=== PATIENT | male | born 1995 | race Hispanic/Latino ===

== ENCOUNTER 2025-01-27 16:23 | Emergency (ER) | payer SELFPAY ==
[~2025-01-27] VITALS: Ht 170.2 cm; Wt 154.2 kg
[2025-01-27 17:04] LABS: IMMATURE GRANULOCYTE ABSOLUTE 0.04 K/uL (0-1); NUCLEATED RED BLOOD CELLS 0.0 % (0.0-0.19); PLATELET COUNT (AUTO) 316 K/uL (130-400); RED BLOOD CELL COUNT(AUTO) 5.07 MIL/uL (4.50-6.20); RED CELL DISTRIBUTION WIDTH 14.6 % (11.0-15.5); WHITE BLOOD COUNT (AUTO) 12.7 K/uL (4.8-10.8)
[2025-01-27 17:15] LABS: CREATININE 0.8 mg/dL (0.5-1.3); GLOMERULAR FILTR. RATE CALC 124.0 mL/min (>90); GLUCOSE,RANDOM 113.0 mg/dL (70-105); SODIUM SERUM 133.0 mmol/L (136-145); UREA NITROGEN, BLOOD 10.0 mg/dL (7-18)
--- NOTE | 2025-01-27 17:35 | HMCIMG ---
EXAM: CT Head Without IV contrast. CLINICAL HISTORY: Complicated right otitis externa/right sided facial swelling TECHNIQUE: Axial computed tomography images of the head/brain without intravenous contrast. COMPARISON: None provided. FINDINGS: BRAIN: No evidence of acute hemorrhage. No mass lesion. No CT evidence for acute territorial infarct. No midline shift or extra-axial collections. VENTRICLES: No hydrocephalus. ORBITS: The orbits are unremarkable. SINUSES AND MASTOIDS: The paranasal sinuses r cells are clear. Some fluid right mastoid air cells. Soft tissue prominence external auditory canal BONES: No fracture. SOFT TISSUES: Unremarkable. IMPRESSION: No acute intracranial abnormality. Fluid in the right mastoid air cells. Soft tissue prominence and external moderate canal. CT temporal bones suggested /[place]
[2025-01-27 19:09] VITALS: TEMP 99.2
--- NOTE | 2025-01-27 19:43 | HMCIMG ---
EXAM: CT Sinuses Without IV contrast. CLINICAL HISTORY: r/o mastoiditis TECHNIQUE: Computed tomography images of the maxillofacial sinuses without intravenous contrast. Sagittal and coronal reformatted images were generated. CONTRAST: None. COMPARISON: None provided. FINDINGS: PARANASAL SINUSES: The sinuses are well aerated, normally developed. Minimal mucosal thickening in the right maxillary sinus. The osteomeatial units are unremarkable. ORBITS: The orbits are normal. NASAL CAVITY/SEPTUM: The nasal airways are patent. No nasal polyps or masses. Tereza bullosa on the right side. Mild deviated nasal septum to the left with a small bony spur Fluid density in the right mastoid air cells extending into middle ear. BONES: No acute osseous abnormality. SOFT TISSUES: Foci of air within the right parotid gland and parotid duct. The right parotid gland is asymmetrically enlarged with mild associated fat stranding reflecting parotitis. IMPRESSION: Right otomastoiditis. Right parotitis. Minimal mucosal thickening in the right maxillary sinus. Tereza bullosa on the right side. Mild deviated nasal septum to the left with a small bony spur. /[place]
--- NOTE | 2025-01-27 21:05 | ERN ---
General Chief Complaint: Earache Stated Complaint: RT EAR INFECTION Time Seen by MD: 16:25 Time Seen by Midlevel: 16:25 Source: patient History of Present Illness Initial Comments Patient is a 29-year-old male presenting to the emergency department for evaluation of right ear pain and swelling. The patient was diagnosed with an ear infection one week ago and was started on Augmentin and ofloxacin eardrops. He noted no improvement so he decided to follow up with his doctor again who referred him to the ER for possible mastoiditis. Allergies: Coded Allergies: No Known Allergies (Unverified Allergy, Unknown, 01/27/25) Past Medical History Past Medical History: Asthma Past Surgical History: None ROS Dictation CONSTITUTIONAL: Negative except for HPI HEAD/FACE: Negative except for HPI EENT: Negative except for HPI RESPIRATORY: Negative except for HPI GASTROINTESTINAL/ABDOMINAL: Negative except for HPI GENITOURINARY: Negative except for HPI MUSCULOSKELETAL: Negative except for HPI INTEGUMENTARY: Negative except for HPI NEUROLOGICAL/PSYCH: Negative except for HPI HEMATOLOGIC/LYMPHATIC: Negative except for HPI All Systems Negative, Except as noted above. 13 point review of systems assessed and all negative except for above. Physical Exam Physical Exam Dictation Vital Signs reviewed General Appearance: Alert, oriented x 3, no acute distress, well developed, nourished. Head and Face: non-traumatic. Eyes: PERRL, pink conjunctivas, eyelid no trauma, anterior chamber with arcus senilis. Ears: There is moderate amount of drainage to the right external ear canal Nose: No discharge, no bleeding. Oropharynx: Mouth normal, tongue pink, pharynx clear,no erythema, tonsils no exudates, no abscesses noted, mucous membrane moist Neck: Supple, non-tender, no thyromegaly, no masses, no JVD, no bruits Breast:Deferred Chest:No tenderness, no crepitus, no paradoxical movement, no retractions Lungs:Clear, well-ventilated, symmetric, no rales, no wheezing, no rhonchi, no stridor, good breath sounds bilaterally Heart: Regular rate, regular rhythm, no murmur, no gallops Vascular: no peripheral edema, Abdomen: Soft, positive bowel sounds, nondistended, no guarding, nontender, no rebound, no masses no hepatomegaly, no splenomegaly, no Garber's sign, no hernias. Rectal: Deferred Genital: Deferred Neurological: Normal speech, motor function intact, sensory function intact Musculoskeletal: Neck nontender, full range of motion, back nontender, full range of motion, Extremities: nontender, full range of motion Skin: Color pink, dry, no turgor, no rash, no lacerations, no abrasions, no contusions. Lymphatic: Deferred Results Laboratory and Microbiology Lab and Micro Result Laboratory Tests Test 01/27/25 16:50 White Blood Count 12.7 K/uL (4.8-10.8) H Red Blood Count 5.07 MIL/uL (4.50-6.20) Hemoglobin 14.0 g/dL (14.0-18.0) Hematocrit 42.1 % (42-54) Mean Corpuscular Volume 83.0 fL (79-99) Mean Corpuscular Hemoglobin 27.6 pg (27.0-33.0) Mean Corpuscular Hemoglobin Concent 33.3 g/dL (32.0-36.0) Red Cell Distribution Width 14.6 % (11.0-15.5) Platelet Count 316 K/uL (130-400) Mean Platelet Volume 10.1 fL (7.5-10.5) Immature Granulocyte % (Auto) 0.3 % (0-1) Neutrophils (%) (Auto) 64.0 % (40.0-77.0) Lymphocytes (%) (Auto) 27.3 % (21.0-51.0) Monocytes (%) (Auto) 5.7 % (3.0-13.0) Eosinophils (%) (Auto) 2.3 % (0.0-8.0) Basophils (%) (Auto) 0.4 % (0.0-5.0) Neutrophils # (Auto) 8.1 K/uL (1.8-7.7) H Lymphocytes # (Auto) 3.5 K/uL (1.0-4.8) Monocytes # (Auto) 0.7 K/uL (0.1-1.0) Eosinophils # (Auto) 0.29 K/uL (0.00-0.70) Basophils # (Auto) 0.05 K/uL (0.00-0.20) Absolute Immature Granulocyte (auto 0.04 K/uL (0-1) Nucleated Red Blood Cells 0.0 % (0.0-0.19) Sodium Level 133 mmol/L (136-145) L Potassium Level 3.5 mmol/L (3.5-5.1) Chloride Level 97 mmol/L (101-111) L Carbon Dioxide Level 27 mmol/L (21-32) Blood Urea Nitrogen 10 mg/dL (7-18) Creatinine 0.8 mg/dL (0.5-1.3) Glomerular Filtration Rate Calc 124 mL/min (>90) Random Glucose 113 mg/dL (70-105) H Total Calcium 9.0 mg/dL (8.5-10.1) Labs Reviewed?: Yes MDM MDM: Differential diagnosis: Mastoiditis, otitis externa, failure of outpatient therapy Rationale: Tests considered and ordered secondary to shared decision making include: Previous outside records reviewed: Old ER visits. Risk of complication and/or morbidity or mortality of patient management: None Medications-Per medication reconciliation Need for hospitalization: Patient does meet criteria for hospitalization. Need for emergency major/minor surgery: No There are no social concerns with this patient. Prescription drug management Prescriptions will include symptomatic care Patient's prior external medical records from other ER visits were reviewed by me as indicated. Prior testing and results from previous visits were reviewed. Prior tests were taken into account with medical decision making and resource utilization, independent historian/historians were used to obtain complete medical history. I independently interpreted the test that were performed, results were reviewed by me and considered findings on radiology if ordered. Medical management and examination interpretation discussions were had by me with other qualified healthcare professionals as indicated for the patient's care. Patient care was transitioned to nh pending final disposition. Patient had been started on Augmentin and ofloxacin ear drops for right ear infection several days ago. However he started having worsening pain despite meds. Does have a mildly elevated white count here. On CT patient has lasts otitis on the right. Patient also has some parotitis. Patient reports he has significant swelling of the face that seems to have improved here. Given these findings we did discuss case with ENT who is accepting patient at [facility]. Patient admitted to hospitalist service at [facility] in origin to Dr. Guevara. Patient was given 600 mg of clindamycin here. ED Course Orders Procedure Category Date Status Time Cbc With Differential LAB 01/27/25 Complete 16:34 Basic Metabolic Panel LAB 01/27/25 Complete 16:34 Ct Head/Brain W/O CT 01/27/25 Resulted Contrast 16:34 Morphine 2mg Syg PHA 01/27/25 Complete (Morphine 2mg Syg) 17:00 Ondansetron 4mg Inj PHA 01/27/25 Complete (Zofran 4mg Inj) 17:00 Ct Orb/Noreen/Ear W/O CT 01/27/25 Resulted Contrast 17:44 Clindamycin Ivpb PHA 01/27/25 Complete 600mg/50ml (Cleocin 21:30 Ketorolac PHA 01/27/25 Complete Tromethamine 15mg/Ml 21:30 Dexamethasone 4mg/Ml PHA 01/27/25 Complete 1ml Vial (Dexametha 21:30 Current Medications Medications (Trade) Dose Ordered Sig/Genesis Route PRN Reason Start Time Stop Time Status Last Admin Dose Admin Clindamycin HCl/ Dextrose 50 ml @ 100 mls/hr ONCE ONCE IV 01/27/25 21:30 01/27/25 22:03 DC Dexamethasone Sodium Phosphate (dexaMETHasone 4MG/ML 1ML VIAL) 10 mg ONCE ONCE IV 01/27/25 21:30 01/27/25 21:52 DC 01/27/25 21:54 Ketorolac Tromethamine (toRADol) 15 mg ONCE ONCE IV 01/27/25 21:30 01/27/25 21:52 DC 01/27/25 21:55 Morphine Sulfate (morPHINE 2MG SYG) 2 mg ONCE ONCE IVP 01/27/25 17:00 01/27/25 17:01 DC 01/27/25 18:58 Ondansetron HCl (zoFRAN 4MG INJ) 4 mg ONCE ONCE IVP 01/27/25 17:00 01/27/25 17:01 DC 01/27/25 18:57 Vital Signs Date Time Temp Pulse Resp B/P (MAP) Pulse Ox O2 Delivery O2 Flow Rate FiO2 01/27/25 19:09 99.1 91 18 117/69 96 Room Air* 0 21 01/27/25 16:25 98.4 100 20 160/95 99 Room Air DX & DISP Disposition: Transfer Departure Impression: Primary Impression: Acute mastoiditis of right side Additional Impression: Parotitis Condition: Stable Referrals: SELF,REFERRAL (PCP) I have reviewed the case, and I agree with, Diagnosis and Plan I performed the substantive portion of the visit. I have reviewed and personally made and approve the management plan that is documented in the note by myself or the RODGER. I acknowledge for responsibility for the patient's management plan. I have examined patient, & reviewed all documents, & agreed W/ the Diagnosis, and Plan RAY COOPER Jan 27, 2025 21:05 ZAIRA JENSEN MD Jan 27, 2025 22:18
--- NOTE | 2025-01-27 21:55 | NUR ---
TRANSFER CALL PLACED TO [facility] [employer] TO INITIATE TRANSFER FOR ENT SERVICES
--- NOTE | 2025-01-27 22:43 | NUR ---
TRANSFER PT. WAS ACCEPTED @ 2214 BY BHUMI URBINA MD FOR TRANSFER TO [facility]. ROOM ASSIGNMENT AT THIS TIME: 069. REPORT: [phone]
[2025-01-27] MEDS: CLINDAMYCIN IVPB 600MG/50ML 50 ML IV ONE (22:48)
--- NOTE | 2025-01-27 22:55 | NUR ---
[facility] CALLED FOR TRANSPORT
--- NOTE | 2025-01-28 00:23 | NUR ---
REPORT GIVEN TO LUZ KRAMER. PT GOING TO [facility] RM [id number]. AWAITING [facility] ARRIVAL AT THIS TIME
[2025-01-28 01:06] VITALS: BP 151/64; PULSE 87; RESP 16; O2SAT 95
--- NOTE | 2025-01-28 01:08 | NUR ---
PT PICKED UP BY [facility] AT THIS TIME. PT GOING TO RM [id number] AT [facility].
== END 2025-01-28 01:08 ==
LOC: EDH 16:23
DX: H70.001 Acute mastoiditis without complications, right ear (principal); K11.20 Sialoadenitis, unspecified; J45.909 Unspecified asthma, uncomplicated
CPT/HCPCS: 99285; 70480; 96365; 96375; 80048; 85025; 36415; 70450; J1100; J1885; J2270; J2405; J3490